=== PATIENT | male | born 1955 | race Caucasian/White ===

== ENCOUNTER 2020-05-13 13:25 | Outpatient (CLI) | payer OTHER, SELFPAY ==
--- NOTE | ~2020-05-13 | US_ITS ---
EXAMINATION: US renal BI EXAM DATE: 05/13/2020 14:10 INDICATION: R10.9 - Unspecified abdominal pain. History of kidney stones. TECHNIQUE: Multiple grayscale and Doppler images of the kidneys were obtained (by a technologist who performed the scan) and subsequently reviewed. Comparison is made to prior examination from 11/29/2015. FINDINGS: There is hepatic steatosis. Right kidney: There is normal contour and echogenicity. It measures 11.2 x 5.4 x 5.1 centimeters. T here are no focal renal lesions identified. There is no hydronephrosis. Left kidney: There is normal contour and echogenicity. It measures 10.7 x 5.1 x 6.8 centimeters. Th ere are no focal renal lesions identified. There is no hydronephrosis. Bladder unremarkable. Right ureteral jet was confirmed. There is prostatomegaly. IMPRESSION: 1. Sonographically unremarkable kidneys. 2. Hepatic steatosis. 3. Prostatomegaly. Reviewed, dictated and finalized at location A. [employer]
== END 2020-05-13 13:26 | disposition home or self-care (01) ==
LOC: ANHIMG 13:35
PROVIDERS: Family Provider Internal Medicine; PCP Physician Assistant; Visit Provider Physician Assistant
DX: R10.9 Unspecified abdominal pain (principal); K76.0 Fatty (change of) liver, not elsewhere classified; N40.0 Benign prostatic hyperplasia without lower urinary tract symptoms
CPT/HCPCS: 76775

== ENCOUNTER 2024-05-26 08:12 | Inpatient (IN) | payer MEDICARE, SELFPAY ==
[2024-05-26] VITALS (10 sets, daily range): BP systolic 108–185; BP diastolic 48–90; PULSE 61–86; RESP 12–23; TEMP 36.6–36.8; O2SAT 96–100; BMI 24.3
--- NOTE | 2024-05-26 | ECHO_ITS ---
Patient Info Name: Luis Felipe Black Age: 69 years : 1955 Gender: Male Ht: 71 in Wt: 174 lbs BSA: 1.99 m2 HR: 61 bpm BP: 127 / 70 mmHg Heart Rhythm: Sinus Rhythm Technical Quality: Fair Exam Date: 05/26/2024 4:23 PM Exam Location: Echo Lab Patient Status: Inpatient Admit Date: 05/26/2024 Staff Ordering Physician: Crispin Cates MD Data Warehouse Manager: Meghan Echols RDCS Attending Provider: Grant Mcneill MD Exam Type: CA echo dop bubble study w con Study Info Indications - CVA Complete two-dimentional, color flow and Doppler transthoracic echocardiogram is performed with agitated saline and with contrast to opacify the left ventricle and to improve the delineation of the left ventricle endocardial borders. Contrast/Agitated Saline Contrast/Ag. Saline: Agitated Saline Amount: 20.00 ml Existing IV Access: Yes Contrast/Ag. Saline: Definity Amount: 2.00 ml Existing IV Access: Yes Summary 1. Left ventricular chamber dimension is normal. 2. Left ventricular systolic function is lower limits of normal, estimated at 50-55%. 3. There is mildly increased left ventricular wall thickness. 4. The left ventricular diastolic function is grade I diastolic dysfunction. 5. Right ventricular chamber dimension is mildly enlarged. 6. Right ventricular systolic function is normal. 7. Left atrial chamber dimension is mildly enlarged. 8. Intact interatrial septum visualized by color flow and agitated saline imaging. Negative bubble study. 9. There is mild tricuspid valve regurgitation. Left Ventricle Left ventricular chamber dimension is normal. Left ventricular systolic function is lower limits of normal, estimated at 50-55%. There is mildly increased left ventricular wall thickness. The left ventricular diastolic function is grade I diastolic dysfunction. Right Ventricle Right ventricular chamber dimension is mildly enlarged. Right ventricular systolic function is normal. Left Atria Left atrial chamber dimension is mildly enlarged. Right Atria Right atrial chamber dimension is normal. Atrial Septum Intact interatrial septum visualized by color flow and agitated saline imaging. Negative bubble study. Aortic Valve The aortic valve is trileaflet. There is no aortic valve stenosis. There is no aortic valve regurgitation. Pulmonic Valve The pulmonic valve is not well visualized. There is no pulmonic regurgitation. Mitral Valve There is trace mitral valve regurgitation. Tricuspid Valve There is mild tricuspid valve regurgitation. Pericardium/Pleural The pericardium appears epicardial fat pad. There is no pericardial effusion. Inferior Vena Cava Normal inferior vena cava with <50% collapse upon inspiration consistent with elevated right atrial pressure, 8 mmHg. Aorta The aortic root size at the sinus of Valsalva is normal. Left Ventricular Outflow Tract Name Value Normal LVOT 2D LVOT Diameter 1.9 cm LVOT Doppler LVOT Peak Gradient 6 mmHg LVOT Mean Gradient 4 mmHg LVOT VTI 22 cm LVOT VTI/AV VTI Ratio 0.7 LVOT Stroke Volume 65 ml LVOT CO 4.4 l/min LVOT CI 2.2 l/min/m2 Pulmonic Valve Name Value Normal RVOT Doppler RVOT Peak Gradient 3 mmHg PV Doppler PV Peak Gradient 4 mmHg Mitral Valve Name Value Normal MV Doppler MV Decel [place] 376 cm/s2 MV PHT 52 ms MV Area (PHT) 4.2 cm2 4.0-5.0 MV Diastolic Function MV E Peak Velocity 68 cm/s MV A Peak Velocity 87 cm/s MV E/A 0.8 MV Decel Time 180 ms MV Annular TDI MV E/e' (Septal) 9.1 <=8.0 MV E/e' (Lateral) 7.5 <=8.0 MV E/e' (Average) 8.3 Tricuspid Valve Name Value Normal Estimated PAP/RSVP RA Pressure 8 mmHg <=5 Aorta Name Value Normal Ascending Aorta Ao Root Diameter (MM) 3.6 cm Ao Root Diam Index (MM) 1.8 cm/m2 Aortic Valve Name Value Normal AV Doppler AV Peak Velocity 170 cm/s AV Peak Gradient 6 mmHg AV Mean Gradient 4 mmHg AV VTI 31 cm AV Area (Cont Eq VTI) 2.1 cm2 >=3.0 AV Area (Cont Eq Rigoberto) 2.9 cm2 AV Regurgitation 2D LVOT Area 2.9 cm2 Ventricles Name Value Normal LV Dimensions 2D/MM IVS Diastolic Thickness (2D) 1.0 cm 0.6-1.0 LVID Diastole (2D) 3.8 cm 4.2-5.8 LVIW Diastolic Thickness (2D) 1.7 cm 0.6-1.0 LVID Systole (2D) 2.9 cm 2.5-4.0 LVOT Diameter 1.9 cm LV Mass (2D Cubed) 186.81 g 88.00-224.00 LV Mass Index (2D Cubed) 94 g/m2 49-115 Relative Wall Thickness (2D) 0.89 LV Fractional Shortening/Ejection Fraction 2D/MM LV Fractional Shortening (2D) 30 % 25-43 LV EF (2D Teicholz) 56 % 52-72 LV Diastolic Volume (4C MOD) 102 ml LV EF (4C MOD) 46 % LV Diastolic Volume (2C MOD) 91 ml LV EF (2C MOD) 43 % LV Diastolic Volume (BP MOD) 99 ml 62-150 LV Diastolic Volume Index (BP MOD) 49 ml/m2 34-74 LV Systolic Volume (BP MOD) 55 ml 21-61 LV Systolic Volume Index (BP MOD) 27 ml/m2 11-31 LV EF (BP MOD) 44 % 52-72 LV Diastolic Length (4C) 8.1 cm LV Systolic Length (4C) 7.0 cm LV Stroke Volume (4C MOD) 47 ml Atria Name Value Normal LA Dimensions LA Dimension (MM) 3.5 cm 3.0-4.1 LA Volume (4C A-L) 66 ml LA Volume (BP A-L) 58 ml RA Dimensions RA Area (4C) 13.9 cm2 <=18.0 Report Signatures
--- NOTE | ~2024-05-26 | CT_ITS ---
EXAMINATION: CT brain wo con DATE: 05/26/2024 08:54 INDICATION: Dizziness. Right hemiparesis. TECHNIQUE: Computed tomography (CT) of the head was performed without intravenous contrast. The mA wa s adjusted according to patient size. Iterative reconstruction technique was employed. The dose-lengt h product was 605.33 mGy-cm. COMPARISON: None FINDINGS: There are scattered areas of low attenuation in the cerebral white matter, which is within normal limits for the patient's age. There is no intracranial hemorrhage, acute infarction, or abnorm al intracranial mass lesion. The ventricles are normal in size. The orbits are normal. There is mild mucosal thickening in the paranasal sinuses. The mastoid air cells are normal. IMPRESSION: 1. Normal aging brain. Reviewed, dictated and finalized at location [] E SETTING PAINTER APPRENTICE IMPRESSION: 1. Normal aging brain.
--- NOTE | ~2024-05-26 | US_ITS ---
EXAMINATION: US carotid duplex BI DATE: 05/26/2024 14:32 INDICATION: Cerebrovascular accident. TECHNIQUE: Grayscale, color Doppler, and pulsed Doppler images of the cervical carotid arteries were obtained. The degree of vessel stenosis is placed in one of the following categories: normal, <50%, 5 0-69%, >=70% but less than near-occlusion, near-occlusion, or total occlusion. Note that percent sten osis relative to normal distal artery lumen diameter is indirectly measured from velocity measurement s as described by Everette, et al. Radiology 2003; 229:340-346. COMPARISON: None. FINDINGS: RIGHT: The right common carotid artery (CCA) peak systolic velocity (PSV) is 117 cm/s. The right internal ca rotid artery (ICA) PSV is 100 cm/s. The right ICA end-diastolic velocity (EDV) is 27 cm/s. The right ICA/CCA PSV ratio is 1.0. Grayscale and color Doppler images yield an estimate of <50% diameter reduc tion from plaque in the ICA. There is antegrade flow in the right vertebral artery. LEFT: The left CCA PSV is 121 cm/s. The left ICA PSV is 103 cm/s. The left ICA EDV is 29 cm/s. The left ICA /CCA PSV ratio is 0.9. Grayscale and color Doppler images yield an estimate of <50% diameter reductio n from plaque in the ICA. There is antegrade flow in the left vertebral artery. IMPRESSION: 1. <50% stenosis in the right internal carotid artery. 2. <50% stenosis in the left internal carotid artery. Reviewed, dictated and finalized at location A. MACHINE OPERATOR
--- NOTE | ~2024-05-26 | MR_ITS ---
EXAMINATION: MR brain/brain stem wo/w con DATE: 05/26/2024 15:38 INDICATION: Cerebrovascular accident. TECHNIQUE: Magnetic resonance imaging (MRI) of the brain and brainstem was performed without and with 14 mL MultiHance intravenous contrast. COMPARISON: Head CT 05/26/2024 FINDINGS: There are a few areas of nonspecific increased T2-weighted signal intensity in the cerebral white matter, which is within normal limits for the patient's age. There is no intracranial hemorrha ge, acute infarction, or abnormal intracranial mass lesion. The ventricles are normal in size. There is mild mucosal thickening in the ethmoid sinuses. The orbits are normal. The mastoid air cells are n ormal. IMPRESSION: 1. Normal brain. Reviewed, dictated and finalized at location A. TH CENTER ASSOCIATE IMPRESSION: 1. Normal brain.
--- NOTE | 2024-05-26 08:21 | ECG_ITS ---
Test Date: 2024-05-26 08:22:55 Measurements Intervals [place] Rate: 64 P: 40 HI: 127 QRS: 17 QRSD: 146 T: 10 QT: 417 QTc: 430 Interpretive Statements SINUS RHYTHM WITH SINUS ARRHYTHMIA RIGHT BUNDLE BRANCH BLOCK CONSIDER INFERIOR INFARCT, AGE INDETERMINATE BORDERLINE ST-T WAVE ABNORMALITY- LATERAL LEADS BASELINE ARTIFACT- I, II, III, AVR, AVL, AVF ABNORMAL ECG No previous ECG available for comparison Electronically Signed On 05-26-2024 08:49:13 TRANSPORTATION MECHANIC by Jose Luis Tillman D.O.
[2024-05-26 08:41] LABS: Basophils Percent Auto 0.2 % (0.2-1.2); Eosinophils Percent Auto 0.1 % (0-4.4); Hematocrit 45.8 % (42.0-52.0); Hemoglobin 15.3 g/dL (14.0-18.0); Immature Granulocyte Absolute 0.04 K/mm3 (0.00-0.031); Immature Granulocyte Percent A 0.4 % (0-0.5); Lymphocytes Absolute Auto 1.43 K/mm3 (0.9-3.2); Lymphocytes Percent Auto 13.7 % (18.3-44.2); Mean Corpuscular HGB Conc 33.4 g/dl (32-36); Mean Corpuscular Volume 89.8 fl (80-100); Mean Platelet Volume 10.4 fl (7.4-10.4); Monocytes Absolute Auto 0.6 K/mm3 (0.1-0.6); Monocytes Percent Auto 5.5 % (2.6-8.5); Neutrophils Absolute Auto 8.4 K/mm3 (1.3-6.7); Neutrophils Percent Auto 80.1 % (45.5-73.1); Platelet Count Result 331 k/mm3 (150-375); Red Cell Distribution Width 12.1 % (11.5-14.5); White Blood Count 10.5 K/mm3 (4.5-10.0)
[2024-05-26 08:53] LABS: Alanine Aminotransferase 19 U/L (6-50); Albumin Level 4.6 g/dL (3.5-5.1); Alkaline Phosphatase 63 U/L (38-126); Anion Gap 11 mmol/L (4-12); Aspartate Amino Transferase 25 U/L (17-59); Bilirubin,Total 0.8 mg/dL (0.2-1.3); Blood Urea Nitrogen 31 mg/dL (9-20); Calcium 9.8 mg/dL (8.4-10.2); Carbon Dioxide 29 mmol/L (22-30); Chloride 97 mmol/L (98-107); Estimated CRCL calculation 65 ml/min; Estimated Glomerular Filt Rate > 60; Glucose 156 mg/dL (65-110); Potassium 3.9 mmol/L (3.4-5.0); Sodium 137 mmol/L (137-145)
--- NOTE | 2024-05-26 11:06 | ED.NEUROSD ---
HPI - Neuro Symptoms/Deficit General Chief Complaint: Neuro Symptoms/Deficit Stated Complaint: dizziness, right arm weakness - since Time Seen by Provider: 05/26/24 08:22 Source: patient Mode of arrival: ambulatory Limitations: no limitations History of Present Illness HPI Narrative: 69-year-old with a history of hypertension, hyperlipidemia, diabetes here with the complaints of dizziness, off balance ,right arm weakness staggering gait since last 5 days. He presently denies having any headache or weakness. No previous history of CVA. Onset (ago): day(s) (5) Timing confirmed by: family member Location: right arm and right leg Severity: mild Quality: weak Relieving factors: none Exacerbating factors: none Context: gradual onset On Anticoagulants: No Associated symptoms: denies other symptoms Related Data Home Medications ?Medication ?Instructions ?Recorded ?Confirmed ?Last Taken ?Type albuterol sulfate 90 mcg/actuation 1 puff inhalation Q4H PRN 05/17/22 12/04/23 Unknown History aerosol inhaler Allergies Allergy/AdvReac Type Severity Reaction Status Date / Time aspirin Allergy Mild lip Verified 05/26/24 08:36 swelling grass pollen Allergy Mild asthma Verified 05/26/24 08:36 Iodinated Contrast Media Allergy Mild Hives Verified 05/26/24 08:36 Review of Systems Review of Systems: All systems reviewed & are unremarkable except as noted in HPI and below Constitutional: Constitutional: Reports no additional constitutional complaints Eyes: Eyes: Reports no additional eye complaints ENT: Reports system reviewed and no additional complaints, except as documented Cardiovascular: Cardiovascular: Reports no additional cardiovascular complaints Respiratory: Respiratory: Reports no additional respiratory complaints Gastrointestinal: Gastrointestinal: Reports no additional gastrointestinal complaints Musculoskeletal: Musculoskeletal: Reports no additional musculoskeletal complaints [facility] [place] Family History Family History Mother Diabetes mellitus Patient's mother is in good health Sibling Patient's sister is in good health Social History Social History Smoking status: Never smoker Second hand tobacco smoke exposure: Yes Smoking end date: 04/23/14 Alcohol intake: never Substance use: never Lack of Transportation: No Lack of Food: Never True Current Housing: I Have Housing Concerned About Future Housing: No Difficulty Paying Gas/Electric Bills: No Difficulty Paying for Meds: No Currently Unemployed: No Education: High School Diploma/GED Difficulty w/ Childcare or Family Care: No Exam Narrative: GENERAL: Well-appearing, well-nourished, and in no acute distress. HEAD: Normocephalic, atraumatic. EYES: PERRLA and EOMI. ENT: Nares clear, no rhinorrhea or epistaxis. Mucous membranes moist. NECK: Supple. CHEST: Clear to auscultation. No respiratory distress. HEART: Regular rate and rhythm. No murmur heard. Normal peripheral pulses. ABDOMEN: Soft, nontender, nondistended, normal active bowel sounds. EXTREMITIES: Normal range of motion. No edema. SKIN: Warm, dry, no rash. NEURO: No focal deficits. Alert and oriented x3. PSYCH: Normal mood and affect. Course Course Emergency Course: Patient remained asymptomatic while he is here in the ER. Informed him and the family about his lab work, CT findings. I discussed with Dr. Trinidad stroke Neurology at [facility] will accept the pt in transfer , however he will be placed on waitlist . Meanwhile recommended to get MRI Discussed with Dr. Mcneill will accept the pt. Vital Signs Vital signs: Vital Signs Temperature 36.6 C 05/26/24 08:16 Pulse Rate 80 05/26/24 08:16 Respiratory Rate 13 05/26/24 08:16 Blood Pressure 185/83 H 05/26/24 08:16 Pulse Oximetry 99 05/26/24 08:16 Oxygen Delivery Room Air 05/26/24 08:16 Temperature 36.6 C 05/26/24 08:16 Pulse Rate 61 05/26/24 11:04 Respiratory Rate 15 05/26/24 11:04 Blood Pressure 149/83 H 05/26/24 11:04 Pulse Oximetry 98 05/26/24 11:04 Oxygen Delivery Room Air 05/26/24 08:16 MDM - Neuro Symptoms/Deficit Differential Diagnosis Differential diagnosis: Likely peripheral neuropathy, cerebrovascular accident and transient cerebral ischemia Medical Records Attestation: I reviewed the patient's medical records. Lab Data Attestation: I reviewed the patient's lab results. 05/26/24 08:31 05/26/24 08:31 Labs: Lab Results 05/26/24 Range/Units 08:31 WBC 10.5 H (4.5-10.0) K/mm3 RBC 5.10 (4.6-6.20) M/mm3 Hgb 15.3 (14.0-18.0) g/dL Hct 45.8 (42.0-52.0) % MCV 89.8 (80-100) fl MCH 30.0 (26-34) pg MCHC 33.4 (32-36) g/dl RDW 12.1 (11.5-14.5) % Plt Count 331 (150-375) k/mm3 MPV 10.4 (7.4-10.4) fl Immature Gran % (Auto) 0.4 (0-0.5) % Neut % (Auto) 80.1 H (45.5-73.1) % Lymph % (Auto) 13.7 L (18.3-44.2) % [place] % (Auto) 5.5 (2.6-8.5) % Eos % (Auto) 0.1 (0-4.4) % Baso % (Auto) 0.2 (0.2-1.2) % Lymph # (Auto) 1.43 (0.9-3.2) K/mm3 [place] # (Auto) 0.6 (0.1-0.6) K/mm3 Eos # (Auto) 0.0 (0-0.3) K/mm3 Baso # (Auto) 0.0 (0.0-0.1) K/mm3 Abs Immat Gran (auto) 0.04 H (0.00-0.031) K/mm3 Absolute Neuts (auto) 8.4 H (1.3-6.7) K/mm3 Absolute Nucleated RBC 0.000 (0.0-0.012) K/mm3 Nucleated RBC % 0.0 (0.0-0.2) % Sodium 137 (137-145) mmol/L Potassium 3.9 (3.4-5.0) mmol/L Chloride 97 L (98-107) mmol/L Carbon Dioxide 29 (22-30) mmol/L Anion Gap 11 (4-12) mmol/L BUN 31 H (9-20) mg/dL Creatinine 1.04 (0.7-1.3) mg/dL Estim Creat Clear Calc 65 ml/min Estimated GFR > 60 (59 - ) Glucose 156 H (65-110) mg/dL Calcium 9.8 (8.4-10.2) mg/dL Total Bilirubin 0.8 (0.2-1.3) mg/dL AST 25 (17-59) U/L ALT 19 (6-50) U/L Alkaline Phosphatase 63 (38-126) U/L Total Protein 8.0 (6.3-8.2) g/dL Albumin 4.6 (3.5-5.1) g/dL Imaging Data Radiologist's impression: ITS Impressions Head CT 05/26/24 08:56 IMPRESSION: 1. Normal aging brain. ECG Data EKG #1: ECG completion date: 05/26/24 ECG completion time: 08:22 EKG Interpretation: normal rate (64), sinus rhythm, non-specific ST changes, no ST changes, normal QT and other (RBBB) Discharge Plan Discharge Clinical Impression: Dizziness, Acute CVA (cerebrovascular accident) Patient Disposition: Still a Patient Condition: Stable Patient Language: Cook Islander Prescriptions: No Action albuterol sulfate 90 mcg/actuation HFA aerosol inhaler 1 puff inhalation Q4H PRN clobetasol 0.05 % cream 1 applic topical DAILY Qty: 60 1RF lisinopril 40 mg tablet 40 mg PO DAILY Qty: 90 3RF potassium citrate 10 mEq (1,080 mg) tablet extended release 20 meq PO TID Qty: 540 2RF omeprazole 40 mg capsule,delayed release(DR/EC) See Rx Instructions .ROUTE .COMPLEX Qty: 90 3RF Dose Instruction: TAKE 1 CAPSULE DAILY Rx Instructions: TAKE 1 CAPSULE DAILY atorvastatin 10 mg tablet See Rx Instructions .ROUTE .COMPLEX Qty: 90 3RF Dose Instruction: TAKE 1 TABLET DAILY Rx Instructions: TAKE 1 TABLET DAILY metformin 500 mg tablet 500 mg PO BID Qty: 180 1RF allopurinol 100 mg tablet See Rx Instructions .ROUTE .COMPLEX Qty: 90 3RF Dose Instruction: TAKE 1 TABLET DAILY Rx Instructions: TAKE 1 TABLET DAILY hydrochlorothiazide 50 mg tablet See Rx Instructions .ROUTE .COMPLEX Qty: 90 3RF Dose Instruction: TAKE 1 TABLET DAILY Rx Instructions: TAKE 1 TABLET DAILY Follow-up/Referrals: Brissa,Ronnie Garcia PA-C [Primary Care Provider] - Time of Disposition: 11:07 Quality Stroke Date of last known normal: 05/21/24 Stroke Scale Stroke Scale 1: Stroke scale date:: 05/26/24 Stroke scale time:: 08:28 1a Level of consciousness: alert-0 1b Level of consciousness questions: answers both correctly-0 1c Level of consciousness commands: obeys both correctly-0 2 Best gaze: normal-0 3 Visual: no visual loss-0 4 Facial palsy: normal-0 5a Motor: left arm: no drift-0 5b Motor: right arm: no drift-0 6a Motor: left leg: no drift-0 6b Motor: right leg: no drift-0 7 Limb ataxia: absent-0 8 Sensory: normal-0 9 Best language: no aphasia-0 10 Dysarthria: normal-0 11 Extinction and inattention: no abnormality-0 Level:: 0
[2024-05-26 12:41] LABS: Glucose Point of Care 147 mg/dl (65-105)
[2024-05-26 12:45] LABS: Glucose Point of Care 128 mg/dl (65-105)
--- OUTSIDE RECORDS SUMMARY | 2024-05-26 13:04 | XMS_ITS | CONTINUITY OF CARE DOCUMENT ---
Author Name estrella de la rosa Address Unknown Organization [facility] Office Address [address] [place] [address] [address] [address] Phone [phone] Care Team Providers Care Class A Truck Driver Name Role Phone estrella de la rosa Unavailable Unavailable RESULTS Date Observation Value Provider Reference Range Interpretation Location 5 platelet count 260 10*3/uL Brina Campoverde 5 red blood cell distribution width 12.9 % Brina Campoverde 5 mean corpuscular hemoglobin concentration, RBC 34.0 g/dL Brina Campoverde 5 mean corpuscular hemoglobin, RBC 29.5 pg Brina Campoverde 5 mean corpuscular volume, RBC 86.7 fL Brina Campoverde 5 hematocrit, blood 49.1 % Brina Campoverde 5 hemoglobin, blood 16.7 g/dL Brina Campoverde 5 erythrocyte (RBC) count 5.66 10*6/mm3 Brina Campoverde 5 leukocyte count, blood 10.33 10*3/mm3 Brina Campoverde
--- NOTE | 2024-05-26 13:30 | P.HP_ITS ---
H&P: HPI History of Present Illness Date/Time: 05/26/24 13:30 Chief Complaint: Neurologic symptoms. Narrative: This is a 69-year-old male with hypertension, dyslipidemia, type 2 diabetes mellitus, asthma, kidney stones, and gastroesophageal reflux disease who presented to the emergency department for evaluation of neurologic symptoms. The patient provides the following history. On Sunday while at work he suddenly developed a strange sensation in his right arm with blurry vision and feelings of being off balance. The vision and right arm issue resolved within an hour or so however he still feels off balance and he says it feels almost as though he is walking slowly, like his legs are heavy. Due to these ongoing feelings he came in today for evaluation. 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 He also denies chest pain, pleuritic pain, palpitations, and sensations of racing heart. In the ED: Blood pressure on arrival was 185/83. The remainder of his vital signs were stable. Labs were significant for WBC count of 10.5, BUN 31, glucose 156. Head CT showed normal aging brain. EKG showed sinus rhythm with sinus arrhythmia, right bundle-branch block, and borderline ST T-wave abnormalities in the lateral leads with possible age indeterminate inferior infarct. Given the fact that his symptoms have been ongoing for 5 days he is not a candidate for thrombolytics. He lists a contrast allergy and CTA of the brain and carotids is unable to be performed immediately. ED physician spoke with Dr. Trinidad, stroke neurology at [facility] as we do not have Neurology available this week, and the patient has been accepted. They do not yet have a bed available and he is being admitted in this setting for closer monitoring and brain MRI. Review of Systems Review of Systems: 12 systems were reviewed and are negativ e except for as per HPI. [facility] Past Medical History Medical History Gastroesophageal reflux disease Dyshidrotic eczema Asthma Kidney stones Type 2 diabetes mellitus Hyperlipidemia Essential hypertension Surgical History Surgical History History of cystoscopy History of lithotripsy Family History Family History Mother Diabetes mellitus Patient's mother is in good health Cerebrovascular accident Sibling Patient's sister is in good health Father Heart disease Social History Social History Social History: Surrogate medical decision maker: Radha Black, spouse ([phone]). Code status: Full code. Smoking status: Never smoker Second hand tobacco smoke exposure: Yes Alcohol intake: never Substance use: never Substance use type: does not use Do You Feel Safe in your Home?: Yes Lack of Transportation: No Lack of Food: Never True Current Housing: I Have Housing Concerned About Future Housing: No Difficulty Paying Gas/Electric Bills: No Difficulty Paying for Meds: No Currently Unemployed: No Education: High School Diploma/GED Difficulty w/ Childcare or Family Care: No Spiritual care concerns: No Meds Home Medications and Allergies Home Medications ?Medication ?Instructions ?Recorded ?Confirmed ?Type albuterol sulfate 90 mcg/actuation 1 puff inhalation Q4H PRN 05/17/22 05/26/24 History aerosol inhaler shortness of breath or wheezing clobetasol 0.05 % topical cream 1 applic topical DAILY #60 grams 05/29/23 05/26/24 Rx lisinopril 40 mg tablet 40 mg PO DAILY #90 tabs 10/26/23 05/26/24 Rx potassium citrate 10 mEq (1,080 20 meq (2 x 10 mEq (1,080 mg)) PO 11/05/23 05/26/24 Rx mg) tablet,extended release TID #540 tabs omeprazole 40 mg capsule,delayed See Rx Instructions .Route 11/08/23 05/26/24 Rx release .COMPLEX #90 caps atorvastatin 10 mg tablet See Rx Instructions .Route 11/16/23 05/26/24 Rx .COMPLEX #90 tabs metformin 500 mg tablet 500 mg PO BID #180 tabs 12/10/23 05/26/24 Rx allopurinol 100 mg tablet See Rx Instructions .Route 05/13/24 05/26/24 Rx .COMPLEX #90 tabs hydrochlorothiazide 50 mg tablet See Rx Instructions .Route 05/16/24 05/26/24 Rx .COMPLEX #90 tabs Allergies Allergy/AdvReac Type Severity Reaction Status Date / Time aspirin Allergy Mild lip Verified 05/26/24 08:36 swelling grass pollen Allergy Mild asthma Verified 05/26/24 08:36 Iodinated Contrast Media Allergy Mild Hives Verified 05/26/24 08:36 Vital Signs Vital Signs - 24 hr 05/26/24 08:16 05/26/24 08:31 05/26/24 08:45 Temperature 97.9 F Pulse Rate 80 65 71 Respiratory Rate 13 13 12 Blood Pressure 185/83 H 162/90 H Pulse Oximetry 99 100 100 Oxygen Delivery Room Air 05/26/24 09:00 05/26/24 11:04 05/26/24 11:05 Temperature Pulse Rate 61 61 64 Respiratory Rate 14 15 23 H Blood Pressure 149/83 H 149/83 H Pulse Oximetry 98 98 98 Oxygen Delivery 05/26/24 12:50 Temperature 98 F Pulse Rate 61 Respiratory Rate 14 Blood Pressure 127/70 Pulse Oximetry 99 Oxygen Delivery Exam Narrative: General: Well-developed gentleman supine in bed in no distress. Weight: 79 kg. BMI: 24.3. HEENT: Normocephalic, atraumatic. PERRL, EOMI. Sclera anicteric. Oral mucosa moist. Oropharynx clear. Neck: Supple. No carotid bruits. Respiratory: Lungs are clear to auscultation bilaterally. Cardiovascular: Regular rate and rhythm with S1-S2. Gastrointestinal: Abdomen is soft, nontender, and nondistended with positive bowel sounds. Skin: Warm and dry. No rash or lesions on limited exam. Extremities: No cyanosis, clubbing, or edema. Radial and pedal pulses intact. Neurological: Alert and oriented x4. Cranial nerves 2-12 are grossly intact. Speech is clear. No facial asymmetry. No pronator drift. Normal [id number], rapid alternating movements, and heel to murillo. Sensation intact throughout. Strength 5/5 in upper and lower extremities. Gait was not assessed. Psychiatric: Pleasant and cooperative with normal mood and affect. Judgment and insight intact. H&P: Results Labs Labs: Short CBC 05/26/24 Range/Units 08:31 WBC 10.5 H (4.5-10.0) K/mm3 Hgb 15.3 (14.0-18.0) g/dL Hct 45.8 (42.0-52.0) % Plt Count 331 (150-375) k/mm3 BMP 05/26/24 08:31 Sodium 137 Potassium 3.9 Chloride 97 L Carbon Dioxide 29 BUN 31 H Creatinine 1.04 Glucose 156 H Calcium 9.8 Liver Function 05/26/24 Range/Units 08:31 Total Bilirubin 0.8 (0.2-1.3) mg/dL AST 25 (17-59) U/L ALT 19 (6-50) U/L Alkaline Phosphatase 63 (38-126) U/L Albumin 4.6 (3.5-5.1) g/dL Imaging Head CT 05/26/24 08:56 IMPRESSION: 1. Normal aging brain. Assessment and Plan Assessment and plan (1) Neurological symptoms: Code(s): R29.90 - Unspecified symptoms and signs involving the nervous system Status: Acute (2) Essential hypertension: Code(s): I10 - Essential (primary) hypertension Status: Acute (3) Hyperlipidemia: Qualifiers: Hyperlipidemia type: unspecified Qualified Code(s): E78.5 - Hyperlipidemia, unspecified Code(s): E78.5 - Hyperlipidemia, unspecified Status: Acute (4) Type 2 diabetes mellitus: Code(s): E11.9 - Type 2 diabetes mellitus without complications Status: Acute Plan The patient presented to the emergency department for evaluation of feelings of being off balance, staggering gait, and right arm weakness for the last 5 days as detailed in HPI. Labs, imaging, EKG, and all reports were personally reviewed. Brain CT did not show any acute findings however stroke remains in the differential. It is possible that he had transient cerebral ischemia which would explain the fact that the blurry vision and right arm sensation changes resolved quickly however that does not explain the strange feelings he is having while walking. Transfer has been initiated to [facility] due to lack of neurology coverage here this week however a bed is not yet available and he is being admitted for close monitoring until that time. A brain MRI, carotid Doppler ultrasounds, and echocardiogram with bubble study have been ordered for further evaluation. He has an aspirin allergy (lip swelling) and thus aspirin was not given; consider starting clopidogrel depending on workup. PT/OT consulted. Continue atorvastatin but consider increasing dose; check fasting lipids in a.m.. Blood pressure was in the 180s on arrival but has improved and will be monitored. Initiate sliding scale insulin, Accu-Cheks, and hypoglycemic protocol. His home medications will be reviewed and resumed as appropriate. Findings and treatment plan were discussed with the patient. Questions were solicited and answered to satisfaction. The patient's medical management will be taken over by the hospitalist team in a.m. Quality VTE Prophylaxis VTE prophylaxis: mechanical ordered Hospitalist [facility] Advance Care Plan I have confirmed that the patient's Advanced Care Plan is present, code status is documented, or surrogate decision maker is listed in patient medical record.: Yes Medication Reconciliation I have utilized all available resources to obtain, update and review the patients current medications (includes all prescriptions, OTC, herbals, ca nnabis, and nutritional supplements).: Yes
--- NOTE | 2024-05-26 14:09 | PC.NURSE ---
Patient off of unit to US Patient will go to MRI after US
--- NOTE | 2024-05-26 14:10 | PC.NURSE ---
This patient, Luis Felipe Black, was admitted to Medical Room 249-01. Patient/family oriented to hospital policies and general routines including ID bracelet, bed and alarms, visiting hours, pain management, procedures, bathroom and other care routines, personal items, smoking policy, room service/diet, and visiting hours. Information on how to activate the Rapid Response Team has been discussed. Patient/Family are encouraged to report perceived risks to care and to ask questions if they do not understand what they are told or what they should do.
[2024-05-26] MEDS: PERFLUTREN LIPID MICROSPHERES 1.5 ML VIAL DILUTED TO 10 ML TOTAL VOLUME IV PUSH (16:55)
--- NOTE | 2024-05-26 17:18 | IVDEFINITY ---
Prior to administration of IV Definity the patient was educated on the risks and benefits of the imaging enhancing agent including potential adverse side effects. The patient verbalized understanding. Allergies were verified. No exclusion criteria were identified and at least one of the following inclusion criteria were met: 1) physician request, 2) patient technically difficult to image (per the [place] [employer] Echocardi[employer] guidelines of two or more segments not discernable within the apical view), or 3) questionable left ventricular function. ?
[2024-05-26 17:23] LABS: Glucose Point of Care 143 mg/dl (65-105)
[2024-05-26 20:24] LABS: Glucose Point of Care 186 mg/dl (65-105)
[2024-05-27] VITALS: BP 128/70; PULSE 56; PULSE 61; RESP 18; TEMP 36.7; O2SAT 96
[2024-05-27 04:00] VITALS: BP 155/84; PULSE 58; PULSE 84; RESP 18; TEMP 36.4; O2SAT 99
[2024-05-27 05:11] LABS: Basophils Absolute Auto 0.1 K/mm3 (0.0-0.1); Basophils Percent Auto 0.4 % (0.2-1.2); Eosinophils Absolute Auto 0.1 K/mm3 (0-0.3); Eosinophils Percent Auto 0.7 % (0-4.4); Hematocrit 43.9 % (42.0-52.0); Hemoglobin 14.7 g/dL (14.0-18.0); Immature Granulocyte Absolute 0.04 K/mm3 (0.00-0.031); Immature Granulocyte Percent A 0.4 % (0-0.5); Lymphocytes Percent Auto 20.4 % (18.3-44.2); Mean Corpuscular HGB Conc 33.5 g/dl (32-36); Mean Corpuscular Hemoglobin 30.1 pg (26-34); Mean Corpuscular Volume 89.8 fl (80-100); Mean Platelet Volume 10.4 fl (7.4-10.4); Monocytes Absolute Auto 0.7 K/mm3 (0.1-0.6); Monocytes Percent Auto 6.5 % (2.6-8.5); Neutrophils Absolute Auto 8.1 K/mm3 (1.3-6.7); Neutrophils Percent Auto 71.6 % (45.5-73.1); Platelet Count Result 281 k/mm3 (150-375); Red Blood Count 4.89 M/mm3 (4.6-6.20); Red Cell Distribution Width 12.2 % (11.5-14.5); White Blood Count 11.3 K/mm3 (4.5-10.0)
[2024-05-27 05:19] LABS: Hemoglobin A1C 7.6 % (<5.7)
[2024-05-27 05:21] LABS: Anion Gap 10 mmol/L (4-12); Blood Urea Nitrogen 27 mg/dL (9-20); Calcium 9.4 mg/dL (8.4-10.2); Carbon Dioxide 29 mmol/L (22-30); Chloride 100 mmol/L (98-107); Cholesterol 130 mg/dL (0-200); Estimated CRCL calculation 74 ml/min; Estimated Glomerular Filt Rate > 60; Glucose 144 mg/dL (65-110); HDL Direct 47 mg/dL; Magnesium 1.8 mg/dL (1.6-2.3); Potassium 3.6 mmol/L (3.4-5.0); Sodium 139 mmol/L (137-145); Triglycerides 104 mg/dL (<150)
[2024-05-27 05:32] LABS: LDL Cholesterol Direct 68 mg/dL
[2024-05-27 05:54] LABS: Thyroid Stimulating Hormone Reflex 0.843 uIU/mL (0.465-4.68)
[2024-05-27 06:00] VITALS: BP 143/66; PULSE 60; RESP 18; TEMP 36.8; O2SAT 97
[2024-05-27 08:00] VITALS: BP 140/62; PULSE 60; PULSE 63; RESP 17; TEMP 36.6; O2SAT 97
[2024-05-27 08:18] LABS: Glucose Point of Care 142 mg/dl (65-105)
[2024-05-27] MEDS: POTASSIUM CHLORIDE 20 MEQ ER TABLET PO ×2 (09:05→12:18)
[2024-05-27] MEDS: hydroCHLOROthiazide 25 MG TABLET BY MOUTH (09:06)
[2024-05-27] MEDS: ATORVASTATIN 10 MG TABLET BY MOUTH (09:06)
[2024-05-27] MEDS: metFORMIN HCL 500 MG TABLET PO (09:06)
[2024-05-27] MEDS: allopurinoL 100 MG TABLET BY MOUTH (09:06)
[2024-05-27] MEDS: PANTOPRAZOLE 40 MG TABLET PO (09:06)
[2024-05-27] MEDS: lisinopriL 20 MG TABLET 40 MG PO (09:07)
[2024-05-27 12:00] VITALS: BP 131/62; PULSE 68; RESP 18; TEMP 36.5; O2SAT 99
[2024-05-27 12:02] LABS: Glucose Point of Care 144 mg/dl (65-105)
[2024-05-27 14:00] VITALS: BP 130/66; PULSE 70; RESP 18; TEMP 36.5; O2SAT 98
--- NOTE | 2024-05-27 14:12 | PM.DS ---
DS: Admitting Diagnosis Discharge Date 05/27 Admitting Diagnosis neurological sympoms DS: Discharge Diagnosis Discharge Diagnosis (1) Neurological symptoms: Code(s): R29.90 - Unspecified symptoms and signs involving the nervous system Status: Acute (2) Essential hypertension: Code(s): I10 - Essential (primary) hypertension Status: Acute (3) Hyperlipidemia: Qualifiers: Hyperlipidemia type: unspecified Qualified Code(s): E78.5 - Hyperlipidemia, unspecified Code(s): E78.5 - Hyperlipidemia, unspecified Status: Acute (4) Type 2 diabetes mellitus: Code(s): E11.9 - Type 2 diabetes mellitus without complications Status: Acute DS: Summary Hospital Course Hospital Course: This is a 69-year-old male with hypertension, dyslipidemia, type 2 diabetes mellitus, asthma, kidney stones, and gastroesophageal reflux disease who presented to the emergency department for evaluation of neurologic symptoms. The patient provides the following history. On Sunday while at work he suddenly developed a strange sensation in his right arm with blurry vision and feelings of being off balance. The vision and right arm issue resolved within an hour or so however he still feels off balance and he says it feels almost as though he is walking slowly, like his legs are heavy. Due to these ongoing feelings he came in today for evaluation. 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 He also denies chest pain, pleuritic pain, palpitations, and sensations of racing heart. Labs, images, ekg completed. BP was slightly elevated. Labs were significant for WBC count of 10.5, BUN 31, glucose 156. Head CT showed normal aging brain. EKG showed sinus rhythm with sinus arrhythmia, right bundle-branch block, and borderline ST T-wave abnormalities in the lateral leads with possible age indeterminate inferior infarct. Brain MRI was done and unremarkable. Symptoms have been ongoing for 5 days - so not a candidate for thrombolytics. ED physician spoke with Dr. Trinidad, stroke neurology at [facility] - the patient has been accepted there since there was no neurology here. His symptoms completely resolved. Speech is clear, no neurological deficit. He wants to go home. Since neurology is here today- it would be prudent for them to examined and evaluate the pt/ He can f/u with neurology as an outpt. Will start ok asa and he is already taking statin 10 mg- will need to be titrated to high intensity dose. He can f/u with PCP. Status at Discharge Functional status at discharge: independent ambulation Overall status at discharge: patient is back to baseline Time Spent with Patient Time attestation: Total time spent providing and/or coordinating discharge services: Time spent: Greater than 30 minutes Exam Narrative: General: Well-developed gentleman supine in bed in no distress. Weight: 79 kg. BMI: 24.3. HEENT: Normocephalic, atraumatic. PERRL, EOMI. Sclera anicteric. Oral mucosa moist. Oropharynx clear. Neck: Supple. No carotid bruits. Respiratory: Lungs are clear to auscultation bilaterally. Cardiovascular: Regular rate and rhythm with S1-S2. Gastrointestinal: Abdomen is soft, nontender, and nondistended with positive bowel sounds. Skin: Warm and dry. No rash or lesions on limited exam. Extremities: No cyanosis, clubbing, or edema. Radial and pedal pulses intact. Neurological: Alert and oriented x4. Cranial nerves 2-12 are grossly intact. Speech is clear. No facial asymmetry. No pronator drift. Normal [id number]-av-hbnl, rapid alternating movements, and heel to murillo. Sensation intact throughout. Strength 5/5 in upper and lower extremities. Gait was not assessed. Psychiatric: Pleasant and cooperative with normal mood and affect. Judgment and insight intact. Const: General: comfortable Eyes: General: appearance normal, both eyes and all related structures Sclera: sclerae normal Neck: Neck: supple Resp: Effort & Inspection: normal respiratory effort Auscultation: clear to auscultation bilaterally Cardio: Rate: regular rate Rhythm: regular rhythm GI: GI Palp: Yes Soft to palpation : Male General Exam: Yes normal external exam Neuro: Motor exam (neuro): 5/5 motor strength present throughout Psych: Mental Status: mental status grossly normal Affect: normal affect DS: Data Data Completed and Pending Completed studies during hospitalization: MRI brain, carotid doppler, head ct Labs on day of discharge: Labs from last 24 hours 05/27/24 05/27/24 05/27/24 11:54 08:08 05:02 WBC 11.3 H RBC 4.89 Hgb 14.7 Hct 43.9 MCV 89.8 MCH 30.1 MCHC 33.5 RDW 12.2 Plt Count 281 MPV 10.4 Immature Gran % (Auto) 0.4 Neut % (Auto) 71.6 Lymph % (Auto) 20.4 [place] % (Auto) 6.5 Eos % (Auto) 0.7 Baso % (Auto) 0.4 Lymph # (Auto) 2.30 [place] # (Auto) 0.7 H Eos # (Auto) 0.1 Baso # (Auto) 0.1 Abs Immat Gran (auto) 0.04 H Absolute Neuts (auto) 8.1 H Absolute Nucleated RBC 0.000 Nucleated RBC % 0.0 Sodium 139 Potassium 3.6 Chloride 100 Carbon Dioxide 29 Anion Gap 10 BUN 27 H Creatinine 0.91 Estim Creat Clear Calc 74 Estimated GFR > 60 Glucose 144 H POC Capillary Glucose 144 H 142 H Hemoglobin A1c 7.6 H Calcium 9.4 Magnesium 1.8 Triglycerides 104 Cholesterol 130 LDL Cholesterol Direct 68 HDL Direct 47 Vitamin B12 475.0 TSH (Reflex) 0.843 05/26/24 05/26/24 20:15 17:21 WBC RBC Hgb Hct MCV MCH MCHC RDW Plt Count MPV Immature Gran % (Auto) Neut % (Auto) Lymph % (Auto) [place] % (Auto) Eos % (Auto) Baso % (Auto) Lymph # (Auto) [place] # (Auto) Eos # (Auto) Baso # (Auto) Abs Immat Gran (auto) Absolute Neuts (auto) Absolute Nucleated RBC Nucleated RBC % Sodium Potassium Chloride Carbon Dioxide Anion Gap BUN Creatinine Estim Creat Clear Calc Estimated GFR Glucose POC Capillary Glucose 186 H 143 H Hemoglobin A1c Calcium Magnesium Triglycerides Cholesterol LDL Cholesterol Direct HDL Direct Vitamin B12 TSH (Reflex) Discharge Plan Discharge Attending physician on discharge: Grant Mcneill Consulting providers: Darryl Souza Discharging Clinician: Pao Carlisle Patient Disposition: Home, Self-Care Activity: may shower Diet: as tolerated and heart healthy Discharge Instructions: Please wait till you see neurologist today for eval and recommendations. I will increase statin to 20 mg and you will have to get to 40 mg dose in few weeks. Your PCP can help uptitrate the dose slowly. 40 mg of statin is recommended. Take 81 mg of aspirin. Please do not smoke, drink, avoid greasy fatty foods, and perform purposful physical activity on a regular basis- 150 min a week. Start slowly and build up- walking is a great start. Patient Instructions: Antibiotic Form Patient Language: Albanian Stand Alone Forms: General Discharge Information Follow-up/Referrals: Brissa,Ronnie Garcia, JAVIERC [Primary Care Provider] - 2 Weeks Darryl Souza MD [Physician] - 2 Weeks Discharge Medications: New atorvastatin 10 mg Tablet 20 mg BYMOUTH DAILY Qty: 90 0RF Continued albuterol sulfate 90 mcg/actuation HFA aerosol inhaler 1 puff inhalation Q4H PRN (Reason: shortness of breath or wheezing) clobetasol 0.05 % cream 1 applic topical DAILY Qty: 60 1RF lisinopril 40 mg tablet 40 mg PO DAILY Qty: 90 3RF potassium citrate 10 mEq (1,080 mg) tablet extended release 20 meq PO TID Qty: 540 2RF omeprazole 40 mg capsule,delayed release(DR/EC) See Rx Instructions .ROUTE .COMPLEX Qty: 90 3RF Dose Instruction: TAKE 1 CAPSULE DAILY Rx Instructions: TAKE 1 CAPSULE DAILY metformin 500 mg tablet 500 mg PO BID Qty: 180 1RF allopurinol 100 mg tablet See Rx Instructions .ROUTE .COMPLEX Qty: 90 3RF Dose Instruction: TAKE 1 TABLET DAILY Rx Instructions: TAKE 1 TABLET DAILY hydrochlorothiazide 50 mg tablet See Rx Instructions .ROUTE .COMPLEX Qty: 90 3RF Dose Instruction: TAKE 1 TABLET DAILY Rx Instructions: TAKE 1 TABLET DAILY Discontinued atorvastatin 10 mg tablet See Rx Instructions .ROUTE .COMPLEX Qty: 90 3RF Dose Instruction: TAKE 1 TABLET DAILY Rx Instructions: TAKE 1 TABLET DAILY Date of admission: 05/26/24 11:45 Primary Care Provider: BrissaRonnie Admitting Provider: Grant Mcneill Attending physician on admission: Grant Mcneill Condition: Stable Quality VTE Prophylaxis VTE prophylaxis: mechanical ordered Hospitalist MIPS Heart Failure (Exclusion) Patient has history of Heart Transplant or Left Ventricular Assistive Device?: No IF YES, STOP HERE Heart Failure (Qualifier) Patient has current or prior documentation of LVEF less than or equal to 40%, or mod/servere depressed LVSF?: No IF NO, STOP HERE
== END 2024-05-27 15:50 | disposition home or self-care (01) | DRG 93 ==
LOC: ANHED 11:16 → ANH2MED 11:57
PROVIDERS: Physician Assistant; Admitting Provider General Practice; Emergency Provider Family Medicine; PCP Physician Assistant; Visit Provider Nurse Practitioner
DX: R29.818 Other symptoms and signs involving the nervous system (principal); R42 Dizziness and giddiness; R26.89 Other abnormalities of gait and mobility; H53.8 Other visual disturbances; I10 Essential (primary) hypertension; E78.5 Hyperlipidemia, unspecified; E11.9 Type 2 diabetes mellitus without complications; K21.9 Gastro-esophageal reflux disease without esophagitis; L30.1 Dyshidrosis [pompholyx]; J45.909 Unspecified asthma, uncomplicated; Z87.442 Personal history of urinary calculi
CPT/HCPCS: 36415; 70450; 70553; 80048; 80053; 80061; 82607; 82948; 83036; 83735; 84443; 85025; 93005; 93880; 96374; 96375; 97165; 99285; A9270; A9577; C8929; Q9957